=== PATIENT | male | born 1975 | race Caucasian/White ===

== ENCOUNTER 2023-03-25 23:56 | Emergency (ER) | payer MEDICAID ==
[~2023-03-25] VITALS: Ht 177.8 cm; Wt 75.0 kg
[2023-03-26 00:10] VITALS: TEMP 97.7
[2023-03-26] MEDS ORDERED: GABA-1181 PO (00:28)
[2023-03-26] MEDS ORDERED: TRAZ-257 PO (00:28)
[2023-03-26 01:16] LABS: BASOPHILS % (AUTO) 2.3 % (0.0-2.0); EOSINOPHILS % (AUTO) 1.5 % (1.0-6.0); HEMATOCRIT 48.2 % (41-53); HEMOGLOBIN 16.3 g/dL (13.5-17.5); LYMPHOCYTES # (AUTO) 2.5 K/uL (1.0-4.8); LYMPHOCYTES % (AUTO) 37.8 % (22.0-44.0); MEAN CORPUSCULAR HGB CONC 33.8 G/dL (31.0-37.0); MEAN CORPUSCULAR VOLUME 98 fL (80-100); MONOCYTES # (AUTO) 0.8 K/uL (0.1-1.0); MONOCYTES % (AUTO) 11.8 % (2.0-9.0); NEUTROPHILS # (AUTO) 3.1 K/uL (1.8-7.7); NEUTROPHILS % (AUTO) 46.6 % (40.0-70.0); PLATELET COUNT (AUTO) 419 K/uL (150-450); RED BLOOD CELL COUNT(AUTO) 4.94 MIL/uL (4.50-5.90); RED CELL DISTRIBUTION WIDTH 13.8 % (11.5-14.5); WHITE BLOOD COUNT (AUTO) 6.7 K/uL (4.5-11.0)
[2023-03-26 01:25] LABS: ANION GAP 8 mmol/L (8-16); CALCIUM, TOTAL 8.6 mg/dL (8.8-10.5); CARBON DIOXIDE 30 mmol/L (22-29); CHLORIDE 106 mmol/L (98-107); CREATININE 0.97 mg/dL (0.60-1.30); GLOMERULAR FILTR. RATE CALC > 60 mL/min (>60); GLUCOSE,RANDOM 96 mg/dL (70-110); POTASSIUM 3.8 mmol/L (3.5-5.1); SODIUM SERUM 144 mmol/L (136-145); UREA NITROGEN, BLOOD 9 mg/dL (7-18)
[2023-03-26 01:32] LABS: ALANINE AMINOTRANSFERASE 30 U/L (12-78); ALBUMIN 3.6 g/dL (3.4-5.0); ALCOHOL, BLOOD (SERUM) 272 mg/dL (0-10); ALKALINE PHOSPHATASE 76 U/L (46-116); ASPARTATE AMINOTRANSFERASE 39 U/L (15-37); BILIRUBIN,TOTAL 0.2 mg/dL (0.1-1.0); TOTAL PROTEIN, SERUM 7.1 g/dL (6.4-8.2)
[2023-03-26 01:59] LABS: AMPHET/METH SCREEN,URINE NEGATIVE (NEGATIVE); BARBITURATE SCREEN, URINE NEGATIVE (NEGATIVE); BENZODIAZEPINES SCREEN,URINE POSITIVE (NEGATIVE); CANNABINOID SCREEN,URINE NEGATIVE (NEGATIVE); COCAINE SCREEN,URINE NEGATIVE (NEGATIVE); METHADONE SCREEN, URINE NEGATIVE (NEGATIVE); OPIATE SCREEN,URINE NEGATIVE (NEGATIVE); PHENCYCLIDINE SCREEN,URINE NEGATIVE (NEGATIVE)
[2023-03-26 02:00] LABS: ALCOHOL, URINE DRUG SCREEN POSITIVE (NEGATIVE)
[2023-03-26] MEDS ORDERED: LORazepam 2 MG TABLET PO ONE (02:00)
[2023-03-26] MEDS ORDERED: TraZODone HCL 50 MG TABLET PO ONE (02:00)
[2023-03-26] MEDS ORDERED: NICOTINE 14 MG/24 HOUR PATCH TD ONE (02:00)
[2023-03-26] MEDS ORDERED: GABAPENTIN 300 MG CAPSULE PO ONE (02:00)
[2023-03-26 04:48] VITALS: BP 113/68; PULSE 80; RESP 17
[2023-03-27] MEDS ORDERED: TRAZ-252 PO (15:20)
[2023-03-27] MEDS ORDERED: OMEP20CA12 PO (15:20)
[2023-03-27] MEDS ORDERED: ESCI-8 PO (15:20)
== END 2023-03-26 08:30 | disposition home or self-care (01) ==
LOC: EMS 03-26 00:02
DX: F33.9 Major depressive disorder, recurrent, unspecified (principal); F10.129 Alcohol abuse with intoxication, unspecified; R45.851 Suicidal ideations; F41.9 Anxiety disorder, unspecified; F17.210 Nicotine dependence, cigarettes, uncomplicated; F12.90 Cannabis use, unspecified, uncomplicated; Z98.890 Other specified postprocedural states
CPT/HCPCS: 99284; 80053; 85025; 36415; 80307; G0480

== ENCOUNTER 2023-03-26 14:19 | Inpatient (IN) | payer MEDICAID ==
[~2023-03-26] VITALS: Ht 177.8 cm; Wt 72.0 kg
[~2023-03-26 14:19] MED LIST: GABA-1181 PO; TRAZ-257 PO
[2023-03-26] MEDS ORDERED: ChlordiazePOXIDE HCL 25 MG CAPSULE PO ONE (16:00)
[2023-03-26 16:07] LABS: ALCOHOL, URINE DRUG SCREEN NEGATIVE (NEGATIVE); AMPHET/METH SCREEN,URINE NEGATIVE (NEGATIVE); BARBITURATE SCREEN, URINE NEGATIVE (NEGATIVE); BENZODIAZEPINES SCREEN,URINE POSITIVE (NEGATIVE); CANNABINOID SCREEN,URINE NEGATIVE (NEGATIVE); COCAINE SCREEN,URINE NEGATIVE (NEGATIVE); METHADONE SCREEN, URINE NEGATIVE (NEGATIVE); OPIATE SCREEN,URINE NEGATIVE (NEGATIVE); PHENCYCLIDINE SCREEN,URINE NEGATIVE (NEGATIVE)
[2023-03-26] MEDS ORDERED: QUEtiapine FUMARATE 100 MG TABLET PO PRN (17:00)
[2023-03-26] MEDS ORDERED: ZOLPIDEM TARTRATE 10 MG TABLET PO PRN (17:00)
[2023-03-26 17:02] LABS: BASOPHILS % (AUTO) 3.4 % (0.0-2.0); EOSINOPHILS % (AUTO) 1.5 % (1.0-6.0); HEMATOCRIT 44.8 % (41-53); HEMOGLOBIN 15.1 g/dL (13.5-17.5); LYMPHOCYTES # (AUTO) 1.4 K/uL (1.0-4.8); LYMPHOCYTES % (AUTO) 26.5 % (22.0-44.0); MEAN CORPUSCULAR HEMOGLOBIN 32.9 pg (26.0-34.0); MEAN CORPUSCULAR HGB CONC 33.7 G/dL (31.0-37.0); MEAN CORPUSCULAR VOLUME 98 fL (80-100); MONOCYTES # (AUTO) 0.7 K/uL (0.1-1.0); MONOCYTES % (AUTO) 13.2 % (2.0-9.0); NEUTROPHILS # (AUTO) 2.9 K/uL (1.8-7.7); NEUTROPHILS % (AUTO) 55.4 % (40.0-70.0); PLATELET COUNT (AUTO) 361 K/uL (150-450); RED BLOOD CELL COUNT(AUTO) 4.58 MIL/uL (4.50-5.90); RED CELL DISTRIBUTION WIDTH 13.7 % (11.5-14.5); WHITE BLOOD COUNT (AUTO) 5.3 K/uL (4.5-11.0)
[2023-03-26] MEDS ORDERED: LORazepam 2 MG TABLET PO PRN (17:15)
[2023-03-26 17:16] LABS: ANION GAP 7 mmol/L (8-16); CARBON DIOXIDE 29 mmol/L (22-29); CHLORIDE 100 mmol/L (98-107); CREATININE 0.91 mg/dL (0.60-1.30); GLOMERULAR FILTR. RATE CALC > 60 mL/min (>60); GLUCOSE,RANDOM 81 mg/dL (70-110); POTASSIUM 3.5 mmol/L (3.5-5.1); SODIUM SERUM 136 mmol/L (136-145); UREA NITROGEN, BLOOD 13 mg/dL (7-18)
[2023-03-26 17:22] LABS: ALANINE AMINOTRANSFERASE 28 U/L (12-78); ALBUMIN 3.6 g/dL (3.4-5.0); ALKALINE PHOSPHATASE 76 U/L (46-116); ASPARTATE AMINOTRANSFERASE 38 U/L (15-37); BILIRUBIN,TOTAL 0.4 mg/dL (0.1-1.0); TOTAL PROTEIN, SERUM 6.9 g/dL (6.4-8.2)
[2023-03-26 17:31] LABS: ALCOHOL, BLOOD (SERUM) < 3 mg/dL (0-10)
[2023-03-26 18:40] LABS: COVID AG,FIA SOURCE NASAL SWAB
[2023-03-26 19:27] LABS: SARS-COV2 (COVID) ANTIGEN,FIA Negative (Negative)
[2023-03-26 21:00] VITALS: BP 156/96; PULSE 76; RESP 18; TEMP 97.5; O2SAT 96
[2023-03-26 22:00] VITALS: BP 142/70; PULSE 80; RESP 18; TEMP 97.5; O2SAT 97
[2023-03-26 23:00] VITALS: BP 148/68; PULSE 75; RESP 18; TEMP 97.5; O2SAT 96
[2023-03-26 23:37] VITALS: BP 146/69; PULSE 80; RESP 18; TEMP 98.1
[2023-03-27] VITALS: BP 150/65; PULSE 72; RESP 17; TEMP 98.1; O2SAT 96
[2023-03-27 04:30] VITALS: BP 146/70; PULSE 80; RESP 18; TEMP 97.8; O2SAT 97
[2023-03-27] MEDS ORDERED: LORazepam 2 MG TABLET PO PRN (07:00)
[2023-03-27] MEDS: MULTIVITAMINS, THERAPEUTIC TABLET PO SCH (08:40)
[2023-03-27] MEDS: LORazepam 2 MG TABLET PO SCH ×4 (08:40→20:25)
[2023-03-27] MEDS: THIAMINE 100 MG TABLET PO SCH (08:40)
[2023-03-27 10:08] VITALS: BP 153/95; PULSE 77; RESP 16; TEMP 98.1
[2023-03-27] MEDS: FOLIC ACID/VIT B COMPLEX AND C TABLET PO SCH (11:34)
[2023-03-27] MEDS ORDERED: ACETAMINOPHEN 325 MG TABLET PO PRN (15:15)
[2023-03-27] MEDS ORDERED: CloNIDine HCL 0.1 MG TABLET PO PRN (15:15)
[2023-03-27] MEDS ORDERED: PETROLATUM,WHITE 28 GM JELLY TP PRN (15:15)
[2023-03-27] MEDS ORDERED: LOPERAMIDE HCL 2 MG CAPSULE PO PRN (15:15)
[2023-03-27] MEDS ORDERED: NICOTINE 14 MG/24 HOUR PATCH TD PRN (15:15)
[2023-03-27] MEDS ORDERED: ALBUTEROL SULFATE HFA 90 MCG/PUFF 8 GM INHALER IH PRN (15:15)
[2023-03-27] MEDS ORDERED: GuaiFENesin/D-METHORPHAN [SUGAR-FREE] 200-20MG/10 ML SYRUP UDCUP PO PRN (15:15)
[2023-03-27] MEDS ORDERED: MAGNESIUM HYDROXIDE SUSPENSION 30 ML UDCUP PO PRN (15:15)
[2023-03-27] MEDS ORDERED: MAG HYDROX/ALUMINUM HYD/SIMETH ES 30 ML SUSPENSION UDCUP PO PRN (15:15)
[2023-03-27] MEDS ORDERED: IBUPROFEN 400 MG TABLET PO PRN (15:15)
[2023-03-27] MEDS ORDERED: ONDANSETRON HCL 4 MG TABLET PO PRN (15:15)
[2023-03-27] MEDS ORDERED: DOCUSATE SODIUM 100 MG CAPSULE PO PRN (15:15)
[2023-03-27] MEDS ORDERED: OMEP20CA12 PO (15:20)
[2023-03-27] MEDS ORDERED: ESCI-8 PO (15:20)
[2023-03-27] MEDS ORDERED: TRAZ-252 PO (15:20)
[2023-03-27] MEDS: GABAPENTIN 300 MG CAPSULE PO SCH (16:32)
[2023-03-27 17:17] VITALS: BP 149/75; PULSE 82; RESP 17; TEMP 98.4; O2SAT 98
[2023-03-27] MEDS ORDERED: TraZODone HCL 100 MG TABLET PO SCH (21:00)
[2023-03-28 07:06] LABS: APPEARANCE,URINE CLEAR (CLEAR); BILIRUBIN,URINE NEGATIVE (NEGATIVE); COLOR,URINE YELLOW (YELLOW); GLUCOSE, URINE (UA) NEGATIVE (NEGATIVE); KETONES,URINE NEGATIVE (NEGATIVE); LEUKOCYTE ESTERASE ,URINE NEGATIVE (NEGATIVE); NITRATE,URINE NEGATIVE (NEGATIVE); OCCULT BLOOD,URINE NEGATIVE (NEGATIVE); PROTEIN,URINE NEGATIVE (NEGATIVE); SPECIFIC GRAVITIY, URINE 1.016 (1.003-1.030); UROBILINOGEN,URINE <=1.0 mg/dL (<=1.0)
[2023-03-28 08:00] VITALS: BP 146/86; PULSE 88; RESP 19; TEMP 98.1
[2023-03-28] MEDS: MULTIVITAMINS, THERAPEUTIC TABLET PO SCH (08:26)
[2023-03-28] MEDS: THIAMINE 100 MG TABLET PO SCH (08:26)
[2023-03-28] MEDS: FOLIC ACID/VIT B COMPLEX AND C TABLET PO SCH (08:26)
[2023-03-28] MEDS: GABAPENTIN 300 MG CAPSULE PO SCH ×2 (08:26→12:17)
[2023-03-28] MEDS: LORazepam 2 MG TABLET PO SCH ×2 (08:26→12:17)
[2023-03-28 08:55] LABS: CHOL/HDL RATIO 2.2 (4.2-7.3); THYROID STIMULATING HORMONE 4.54 uIU/mL (0.36-3.74)
[2023-03-28 10:14] VITALS: BP 146/86; PULSE 88; RESP 19; TEMP 98.1
[2023-03-28] MEDS ORDERED: TRAZ-257 PO ×2 (12:59→16:42)
[2023-03-28] MEDS ORDERED: GABA-1181 PO (16:42)
[2023-03-29] MEDS ORDERED: LORazepam 1 MG TABLET PO PRN (07:00)
[2023-03-29] MEDS ORDERED: LORazepam 1 MG TABLET PO SCH (09:00)
[2023-03-30] MEDS ORDERED: LORazepam 1 MG TABLET PO PRN (07:00)
== END 2023-03-28 18:21 | disposition home or self-care (01) | DRG 751 ==
LOC: EMS 14:24 → 3EI 16:55 → EMS 21:23
PROVIDERS: ADMIT Psychiatry & Neurology Psychiatry; ATTEND Psychiatry & Neurology Psychiatry
PROC: GZHZZZZ Group Psychotherapy (ICD-10-PCS; principal; 2023-03-27)
DX: F33.2 Major depressive disorder, recurrent severe without psychotic features (principal); R45.851 Suicidal ideations; F10.939 Alcohol use, unspecified with withdrawal, unspecified; F41.9 Anxiety disorder, unspecified; J98.4 Other disorders of lung; Z20.822 Contact with and (suspected) exposure to COVID-19; G47.00 Insomnia, unspecified; Z87.891 Personal history of nicotine dependence; Z88.1 Allergy status to other antibiotic agents; Z79.899 Other long term (current) drug therapy
CPT/HCPCS: 80053; 80061; 80307; 81003; 83036; 84443; 85025; 99285; G0480